=== PATIENT | female | born 1955 | race Caucasian/White ===

== ENCOUNTER → 2020-11-24 | Outpatient (CLI) | payer OTHER ==
[~2020-11-24] MED LIST: AMLODIPINE BESYL5 MG PO; ATORVASTATIN CA40 MG PO; CARVEDILOL25 MG PO; CORICIDIN HBP1 EACH PO; ECOTRIN81 MG PO; FOSAMAX70 MG PO; LEVOTHYROXINE100 MC2 PO; MELATONIN10 M2 PO; VITAMIN C1000 MG PO
== END ==
LOC: HEART CORB 09:15
DX: I49.1 Atrial premature depolarization (principal); I11.9 Hypertensive heart disease without heart failure; R94.31 Abnormal electrocardiogram [ECG] [EKG]; I08.3 Combined rheumatic disorders of mitral, aortic and tricuspid valves; I27.20 Pulmonary hypertension, unspecified
CPT/HCPCS: 93306

== ENCOUNTER 2020-12-17 09:40 | Outpatient (CLI) | payer OTHER ==
[~2020-12-17] VITALS: Ht 165.1 cm; Wt 59.0 kg
[2020-12-17] MEDS ORDERED: ECOTRIN81 MG PO (12:17)
[2020-12-17] MEDS ORDERED: CARVEDILOL25 MG PO (12:17)
[2020-12-17] MEDS ORDERED: AMLODIPINE BESYL5 MG PO (12:18)
[2020-12-17] MEDS ORDERED: LEVOTHYROXINE100 MC2 PO (12:18)
[2020-12-17] MEDS ORDERED: VITAMIN C1000 MG PO (12:18)
[2020-12-17] MEDS ORDERED: MELATONIN10 M2 PO (12:19)
[2020-12-17] MEDS ORDERED: FOSAMAX70 MG PO (12:20)
[2020-12-17] MEDS ORDERED: CORICIDIN HBP1 EACH PO (12:20)
[2020-12-17] MEDS ORDERED: ATORVASTATIN CA40 MG PO (12:20)
[2020-12-17 15:23] LABS: HEMOGLOBIN 11.6 gm/dl (12.3-15.3); RED BLOOD COUNT 3.66 M/UL (4.00-5.10); WHITE BLOOD COUNT 10.2 K/UL (4.5-11.0)
--- NOTE | 2020-12-17 18:04 | NUR ---
patient denies pain and watching tv.
[2020-12-18 03:38] LABS: HEMOGLOBIN 10.6 gm/dl (12.3-15.3); RED BLOOD COUNT 3.33 M/UL (4.00-5.10); WHITE BLOOD COUNT 8.3 K/UL (4.5-11.0)
--- NOTE | 2020-12-18 13:49 | NUR ---
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
--- NOTE | 2020-12-18 15:55 | NUR ---
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
--- NOTE | 2020-12-18 17:52 | NUR ---
Cardiac cath sites clean and dry. No bleeding or bruising noted at sites. Radial band device removed at 1626. Pulses normal. Vital signs stable. Discharge order from hospitalist noted. Cardiology notified and okay with discheaged. stated patient has follow up in with cardiology. Bedrest complete at 1600.
== END 2020-12-18 18:27 | disposition home or self-care (01) ==
LOC: M/S 09:40 → CATH 09:40 → M/S 13:45 → CATH 12-18 18:27
PROVIDERS: Internal Medicine Interventional Cardiology
DX: D15.1 Benign neoplasm of heart (principal); I25.118 Atherosclerotic heart disease of native coronary artery with other forms of angina pectoris; I12.9 Hypertensive chronic kidney disease with stage 1 through stage 4 chronic kidney disease, or unspecified chronic kidney disease; N18.30 Chronic kidney disease, stage 3 unspecified; E78.5 Hyperlipidemia, unspecified; E03.9 Hypothyroidism, unspecified; D63.1 Anemia in chronic kidney disease; G47.00 Insomnia, unspecified; Z20.822 Contact with and (suspected) exposure to COVID-19; Z79.82 Long term (current) use of aspirin; Z72.0 Tobacco use; Z82.49 Family history of ischemic heart disease and other diseases of the circulatory system; Z79.899 Other long term (current) drug therapy
CPT/HCPCS: 36415; 80048; 83735; 85025; 93005; 99152; 99153; C1751; C1769; C1887; C1894; J0360; J1644; J2250; J7030; Q9965; U0002

== ENCOUNTER → 2021-11-09 | Outpatient (CLI) | payer OTHER ==
[~2021-11-09] MED LIST changes: +AMITRIPTYLINE H25 MG PO; +CENTRUM SILVER1 EAC4 PO; +CLARITIN10 M2 PO; +CYANOCOBAL1000 MCG/1 INJ; +DOCUSATE SODIU100 MG PO; -LEVOTHYROXINE100 MC2 PO; +LEVOTHYROXINE150 MC1 PO; +METOPROLOL TAR100 MG PO; +RENVELA800 MG PO
[2021-11-09 10:32] LABS: HEMOGLOBIN 11.2 gm/dl (12.3-15.3); RED BLOOD COUNT 3.49 M/UL (4.00-5.10); WHITE BLOOD COUNT 8.4 K/UL (4.5-11.0)
== END ==
LOC: OPSV2 09:49
PROVIDERS: Orthopaedic Surgery
DX: Z01.818 Encounter for other preprocedural examination (principal); N28.1 Cyst of kidney, acquired
CPT/HCPCS: 80048; 85025; 93005

== ENCOUNTER → 2021-12-16 | Outpatient (CLI) | payer OTHER ==
[2021-12-16 10:47] LABS: HEMOGLOBIN 10.5 gm/dl (12.3-15.3); RED BLOOD COUNT 3.19 M/UL (4.00-5.10)
== END ==
LOC: OPSV2 09:43
PROVIDERS: Orthopaedic Surgery
DX: Z01.818 Encounter for other preprocedural examination (principal); M25.861 Other specified joint disorders, right knee
CPT/HCPCS: 36415; 80048; 85025; 93005

== ENCOUNTER → 2021-12-23 | Day surgery (SDC) | payer OTHER ==
[~2021-12-23] VITALS: Ht 165.1 cm; Wt 54.0 kg
[~2021-12-23] MED LIST changes: +HYDROCODON-ACE1 EAC2 PO
== END | disposition home or self-care (01) ==
LOC: OR 07:30
DX: R22.41 Localized swelling, mass and lump, right lower limb (principal); I13.10 Hypertensive heart and chronic kidney disease without heart failure, with stage 1 through stage 4 chronic kidney disease, or unspecified chronic kidney disease; N18.9 Chronic kidney disease, unspecified; D63.1 Anemia in chronic kidney disease; E78.5 Hyperlipidemia, unspecified; I25.10 Atherosclerotic heart disease of native coronary artery without angina pectoris; E03.9 Hypothyroidism, unspecified; Z99.2 Dependence on renal dialysis; Z79.82 Long term (current) use of aspirin; Z79.899 Other long term (current) drug therapy
CPT/HCPCS: C1713; J0690; J1100; J2001; J2250; J2405; J2704; J3010; J7120